=== PATIENT | male | born 1985 | race American Indian/Alaskan Native ===

== ENCOUNTER 2017-06-16 11:44 | Emergency (ER) | payer MEDICAID, OTHER ==
[2017-06-16] MEDS ORDERED: Iopamidol 612 MG/ML 75 ML Bottle IVPUSH ONE (12:37)
[2017-06-16] MEDS ORDERED: Dexamethasone 4 MG/ML SDV IVPUSH ONE (12:37)
[2017-06-16] MEDS: Sodium Chloride 0.9% 10 ML Syringe FLUSH PRN ×2 (12:38→12:47)
[2017-06-16 13:05] LABS: CHLORIDE,CL 104 mmol/L (101-111); SODIUM,NA 137 mmol/L (135-145)
--- NOTE | 2017-06-16 14:14 | EDM.PDOC ---
Scribed by Kait Man 06/16/17 1414 for Rolly Carrillo MD ED HPI GENERAL MEDICAL PROBLEM - General Chief Complaint: ENT Problem Stated Complaint: [id number] NECK SWOLLEN Time Seen by Provider: 06/16/17 11:50 Source of Information: Reports: Patient, RN, RN Notes Reviewed History Limitations: Reports: No Limitations - History of Present Illness INITIAL COMMENTS - FREE TEXT/NARRATIVE: Patient arrives from home by POV with complaint of onset of swelling and tenderness under right jaw/right upper neck last night. Patient woke this morning to find significantly increased swelling. Denies airway swelling or difficulty breathing, fever, chills, sore throat or dental pain/swelling or abscessed tooth. Denies neck stiffness or reduced range of motion. Onset Date: 06/15/17 Location: Reports: Other (right jaw) Quality: Reports: Ache Severity: Severe Improves with: Reports: None Worsens with: Reports: None Associated Symptoms: Reports: No Other Symptoms - Related Data Allergies Allergy/AdvReac Type Severity Reaction Status Date / Time No Known Allergies Allergy Verified 06/16/17 12:07 Home Meds: Home Meds . [No Known Home Meds] 03/30/14 [History] Past Medical History Cardiovascular History: Reports: None Respiratory History: Reports: None Gastrointestinal History: Reports: None Genitourinary History: Reports: None Musculoskeletal History: Reports: None Neurological History: Reports: Concussion Psychiatric History: Reports: None Endocrine/Metabolic History: Reports: None Hematologic History: Reports: None Immunologic History: Reports: None Oncologic (Cancer) History: Reports: None Dermatologic History: Reports: None - Infectious Disease History Infectious Disease History: Reports: Chicken Pox - Past Surgical History Head Surgeries/Procedures: Reports: None HEENT Surgical History: Reports: Other (See Below) Other HEENT Surgeries/Procedures: mouth surgery, jaw broke Social & Family History - Tobacco Use Smoking Status *Q: Never Smoker Second Hand Smoke Exposure: No - Caffeine Use Caffeine Use: Reports: Soda - Alcohol Use Days Per Week of Alcohol Use: 1 - Recreational Drug Use Recreational Drug Use: Yes Drug Use in Last 12 Months: Yes Recreational Drug Type: Reports: Marijuana/Hashish Recreational Drug Use Frequency: Daily - Living Situation & Occupation Living situation: Reports: with Family Occupation: Employed ED ROS ENT - Review of Systems Review Of Systems: ROS reveals no pertinent complaints other than HPI. ED EXAM, ENT - Physical Exam Exam: See Below Exam Limited By: No Limitations General Appearance: Alert, WD/WN, No Apparent Distress, Obese Eye Exam: Bilateral Eye: Normal Inspection Ears: Normal External Exam, Normal Canal, Hearing Grossly Normal, Normal TMs Nose: Normal Inspection, Normal Mucousa, No Blood Mouth/Throat: Normal Gums, Normal Lips, Normal Oropharynx, Normal Teeth, Other ( No dental abscess or gum swelling. No pharyngeal erythema. Mild tonsillar hypertrophy.). No: Dental Abcess, Dental Pain, Dental Tenderness, Drooling, Gum Swelling, Lip Swelling, Lip Ulcers, Oral Ulcers, Peritonsillar Mass, Pharyngeal Erythema, Throat Swelling, Tongue Swelling, Tonsillar Erythema, Tonsillar Exudates, Tonsillar Swelling, Uvular Deviation, Uvular Edema Head: Atraumatic, Normocephalic Neck: Full Range of Motion, Lymphadenopathy (R), Other (No nuchal rigidity.Large firm tender mass at right upper anteriorneck/submandibular region.). No: Lymphadenopathy (L) Respiratory/Chest: No Respiratory Distress, Lungs Clear, Normal Breath Sounds, No Accessory Muscle Use, Chest Non-Tender Cardiovascular: Normal Peripheral Pulses, Regular Rate, Rhythm, No Edema, No Gallop, No JVD, No Murmur, No Rub (Male) Exam: Deferred Rectal (Males) Exam: Deferred Neurological: Alert, Oriented, CN II-XII Intact, Normal Cognition, Normal Gait, Normal Reflexes, No Motor/Sensory Deficits Psychiatric: Normal Affect, Normal Mood Skin: Warm, Dry, Intact, Normal Color, No Rash Course - Vital Signs Last Recorded V/S: Last Vital Signs Temp 36.6 C 06/16/17 12:04 Pulse 86 06/16/17 12:04 Resp 16 06/16/17 12:04 BP 131/86 06/16/17 12:04 Pulse Ox 99 06/16/17 12:04 - Orders/Labs/Meds Orders: Active Orders 24 hr Category Date Time Status Peripheral IV Care [RC] . DIRECTED Care 06/16/17 12:36 Active CULTURE STREP A CONFIRMATION [RM] Stat Lab 06/16/17 12:27 Results STREP SCRN A RAPID W CULT CONF [RM] Stat Lab 06/16/17 12:27 Results Sodium Chloride 0.9% [Saline Flush] Med 06/16/17 12:36 Active 10 ml FLUSH ASDIRECTED PRN Peripheral IV Insertion Adult [OM.PC] Stat Oth 06/16/17 12:36 Ordered Medication Orders Sodium Chloride (Saline Flush) 10 ml FLUSH ASDIRECTED PRN PRN Reason: Keep Vein Open Last Admin: 06/16/17 12:47 Dose: 10 ml Admin: 06/16/17 12:38 Dose: 10 ml Labs: Laboratory Tests 06/16/17 06/16/17 06/16/17 Range/Units 12:43 12:43 12:43 WBC 9.2 (5.0-10.0) 10^3/uL RBC 5.28 (4.6-6.2) 10^6/uL Hgb 15.6 (14.0-18.0) g/dL Hct 47.0 (40.0-54.0) % MCV 89.0 (80-100) fL MCH 29.5 (27.0-34.0) pg MCHC 33.2 (33.0-35.0) g/dL Plt Count 247 (150-450) 10^3/uL Neut % (Auto) 54.6 (42.2-75.2) % Lymph % (Auto) 30.0 (20.5-50.1) % [place] % (Auto) 12.8 H (2-8) % Eos % (Auto) 2.3 (1.0-3.0) % Baso % (Auto) 0.3 (0.0-1.0) % Sodium 137 (135-145) mmol/L Potassium 4.0 (3.6-5.0) mmol/L Chloride 104 (101-111) mmol/L Carbon Dioxide 26.0 (21.0-31.0) mmol/L Anion Gap 11.0 BUN 12 (7-18) mg/dL Creatinine 0.9 (0.6-1.3) mg/dL Est Cr Clr Drug Dosing 115.92 mL/min Estimated GFR (MDRD) > 60 Glucose 104 (74-105) mg/dL Calcium 8.7 (8.4-10.2) mg/dl C-Reactive Protein 0.7 (0.0-1.3) mg/dL Rapid strep: Negative. Meds: Medications Generic Name Dose Route Start Last Admin Trade Name Freq PRN Reason Stop Dose Admin Sodium Chloride 10 ml 06/16/17 12:36 06/16/17 12:47 Saline Flush FLUSH 10 ml ASDIRECTED PRN Administration Keep Vein Open Discontinued Medications Generic Name Dose Route Start Last Admin Trade Name Simon PRN Reason Stop Dose Admin Dexamethasone 20 mg 06/16/17 12:37 06/16/17 12:46 Dexamethasone IVPUSH 06/16/17 12:38 20 mg ONETIME ONE Administration Iopamidol 75 ml 06/16/17 12:37 06/16/17 13:26 Isovue-300 (61%) IVPUSH 06/16/17 12:38 75 ml ONETIME ONE Administration - Radiology Interpretation Free Text/Narrative:: CT soft tissue neck with IV contrast: Soft tissue swelling and edema with inflammatory changes of the right submandibular space including the submandibular gland as described above. No soft tissue calcifications are demonstrate.No focal fluid collection to suggest abscss.There is evidence of associated reactive cervical lymphadenopathy. See rad report. Departure - Departure Time of Disposition: 14:11 Disposition: Home, Self-Care 01 Condition: Good Clinical Impression: Submandibular gland inflammation, Submandibular duct obstruction - Discharge Information Instructions: Salivary Gland Infection, Salivary Stone Forms: ED Department Discharge Additional Instructions: RX: Clindamycin 300mg. RX: Decadron 4mg. Gently massage the inflamed area. Use lemondrops or sour candy to increase saliva production. Follow up in clinic in 2-3 days for recheck. - My Orders Last 24 Hours: My Active Orders 06/16/17 12:27 CULTURE STREP A CONFIRMATION [RM] Stat STREP SCRN A RAPID W CULT CONF [RM] Stat 06/16/17 12:36 Peripheral IV Care [RC] . DIRECTED Sodium Chloride 0.9% [Saline Flush] 10 ml FLUSH ASDIRECTED PRN Peripheral IV Insertion Adult [OM.PC] Stat - Assessment/Plan Last 24 Hours: My Active Orders 06/16/17 12:27 CULTURE STREP A CONFIRMATION [RM] Stat STREP SCRN A RAPID W CULT CONF [RM] Stat 06/16/17 12:36 Peripheral IV Care [RC] . DIRECTED Sodium Chloride 0.9% [Saline Flush] 10 ml FLUSH ASDIRECTED PRN Peripheral IV Insertion Adult [OM.PC] Stat I have read and agree with the documentation that has been completed regarding this visit. By signing this record, I attest that the documentation was completed in my physical presence and is an accurate record of the encounter.
== END 2017-06-16 14:24 | disposition home or self-care (01) ==
LOC: DL.ED 11:44
DX: K11.20 Sialoadenitis, unspecified (principal); Z98.890 Other specified postprocedural states
CPT/HCPCS: 36415; 70491; 80048; 85025; 86140; 87081; 87430; 96374; 99284; J1100; J7050; Q9967

== ENCOUNTER 2019-02-02 05:57 | Day surgery (SDC) | payer OTHER ==
[~2019-02-02 05:57] MED LIST: Dextrose 5%-0.45% NaCl 1,000 ML IV SCH; Midazolam 1 MG/ML 2 ML SDV ONE; Sodium Chloride 0.9% 10 ML Syringe FLUSH PRN; fentaNYL 100 MCG/2 ML SDV ONE
[2019-02-02] MEDS ORDERED: Midazolam 1 MG/ML 2 ML SDV ONE (06:13)
[2019-02-02] MEDS ORDERED: fentaNYL 100 MCG/2 ML SDV ONE (06:13)
[2019-02-02] MEDS ORDERED: fentaNYL 100 MCG/2 ML SDV IV ONE ×2 (06:53→06:54)
[2019-02-02] MEDS ORDERED: Midazolam 1 MG/ML 2 ML SDV IV ONE ×2 (06:54→06:55)
--- NOTE | 2019-02-02 12:08 | OR ---
DATE: 02/02/2019 PROCEDURE: Esophagogastroduodenoscopy and multiple pinch biopsies. INSTRUMENT USED: [id number]-HQ190 Olympus video panendoscope. PREMEDICATIONS: No oral or topical anesthesia used. Fentanyl 100 mcg intravenous, Versed 2 mg intravenous. The procedure was done under pulse oximetry, BP recording, and library monitor. INDICATION: The patient with long-standing heartburn, unexplained and not responsive to medical measures. Esophagogastroduodenoscopy is performed for detection of any active erosive lesions, Rodriguez esophagus and/or malignancy also under consideration, H. pylori status to be determined, endoscopic hemostasis therapy if needed. PROCEDURE IN DETAIL: The scope was passed with ease. Adequate visualization of the esophagus was made from proximal to distal areas. No upper esophageal lesions identified. No distal esophageal stricture. No uphill or downhill esophageal varices. No Carolyn-Card tear. Grade A erosive changes were noted by [place] criteria. No esophageal polyp or tumor mass identified. Z-line was seen at around 40 cm distal to the oral verge, configuration consistent with grade 1 by ZAP classification. No proximal gastric varices noted. Gastric fundus examination by retroflexion showed no polypoid lesions. No gastric ulcer, malignant mass, or vascular ectasia identified. Duodenal bulb showed no ulcer. Visualized of second part of the duodenum was unremarkable. Multiple pinch biopsies were taken from the gastric antrum and proximal body, and sent for PyloriTek test for H. pylori, and if negative in an hour, the tissue is to be sent for histopathology. No bleeding was noted from any of the visualized areas at the completion of examination. Photographs were taken of the duodenal bulb, gastric antrum, fundus, and distal esophagus. There was some amount of solid food in the stomach limiting visualization of some of the areas of the proximal stomach. IMPRESSION: 1. Grade A gastroesophageal reflux disease. 2. Gastric food retention. The patient tolerated the procedure well. [facility] /[id number]
--- NOTE | 2019-02-02 12:27 | LETTER ---
02/02/2019 RE: MICHELLE YUN DEX : 1985 Yesenia Gamez NP [facility] [address] [place] [address] Dear Mr. Gamez: Mr. Michelle Yun had esophagogastroduodenoscopy done this morning and he tolerated the procedure well. I herewith send a copy of the endoscopy note and photographs for your review. Thank you. Sincerely, [facility] /[id number]
== END 2019-02-02 09:06 | disposition home or self-care (01) ==
LOC: DL.ENDO 05:57
PROVIDERS: ATTEND Internal Medicine Gastroenterology
DX: K21.9 Gastro-esophageal reflux disease without esophagitis (principal); T18.2XXA Foreign body in stomach, initial encounter; K31.89 Other diseases of stomach and duodenum; G47.33 Obstructive sleep apnea (adult) (pediatric); E66.09 Other obesity due to excess calories; Z88.0 Allergy status to penicillin; Z68.38 Body mass index [BMI] 38.0-38.9, adult
CPT/HCPCS: 43239; J7042; J2250; J3010

== ENCOUNTER 2019-02-03 07:24 | Day surgery (SDC) | payer OTHER ==
[~2019-02-03 07:24] MED LIST changes: -Dextrose 5%-0.45% NaCl 1,000 ML IV SCH; -Sodium Chloride 0.9% 10 ML Syringe FLUSH PRN
[2019-02-03] MEDS ORDERED: fentaNYL 100 MCG/2 ML SDV IV ONE ×5 (07:25→08:09)
[2019-02-03] MEDS ORDERED: Midazolam 1 MG/ML 2 ML SDV IV ONE ×7 (07:25→08:06)
[2019-02-03] MEDS ORDERED: Dextrose 5%-0.45% NaCl 1,000 ML IV SCH (08:00)
--- NOTE | 2019-02-03 14:28 | OR ---
DATE: 02/03/2019 PROCEDURE: Total colonoscopy. INSTRUMENT USED: [id number]-CM002M Olympus video colonoscope. PREMEDICATIONS: Fentanyl 125 mcg intravenous, Versed 4 mg intravenous, nasal O2 cannula. The procedure was done under pulse oximetry, BP recording, and quality assurance monitor body. INDICATION: The patient with history of rectal bleeding and Hemoccult-positive stools. Colonoscopic examination is done for detection of any polypoid lesions and removal, endoscopic hemostasis therapy if needed. DESCRIPTION OF PROCEDURE: Initial rectal exam was unremarkable. Rigid anoscopy showed small internal hemorrhoids without bleeding from them. The colonoscope was passed with ease. Few scattered diverticula were noted in the distal left colon. The scope was passed with ease up to the ileocecal area. Photographs were taken of the normal-appearing cecum, identified by landmarks of appendiceal orifice and double-bulged ileocecal folds. No bleeding was noted from any of the visualized areas at the commencement of the examination. There was some amount of fecal material that had to be aspirated clear. Bowel preparation, [place] scale 2 in all the regions. No stricture. No vascular ectasia. No large isolated ulcerations seen. No evidence of diffuse inflammatory bowel disease in the form of friability, contact bleeding, or ulcerations. No polyp or tumor mass identified. Probing the proximal sides of folds and flexures using adequate distention and clearing up the stool material, withdrawal of the scope was made. Cecum to rectum time over 6 minutes. No bleeding was noted from any of the visualized areas at the completion of examination. IMPRESSION: 1. Internal hemorrhoids. 2. Diverticulosis. The patient tolerated the procedure well. [facility] /[id number]
--- NOTE | 2019-02-03 14:36 | LETTER ---
02/03/2019 RE: MICHELLE YUN : [address] [facility] [address] [place] [address] Dear Ms. Ramos: Mr. Michelle Yun had a colonoscopic examination done this morning and he tolerated the procedure well. I herewith send a copy of the endoscopy note and photographs for your review. Thank you. Sincerely, [facility] /[id number]
== END 2019-02-03 10:38 | disposition home or self-care (01) ==
LOC: DL.ENDO 07:24
PROVIDERS: ATTEND Internal Medicine Gastroenterology
DX: K57.31 Diverticulosis of large intestine without perforation or abscess with bleeding (principal); K64.8 Other hemorrhoids; K21.9 Gastro-esophageal reflux disease without esophagitis; E66.09 Other obesity due to excess calories; Z88.0 Allergy status to penicillin
CPT/HCPCS: 45378; 87077; J7042; G0121; J2250; J3010

== ENCOUNTER 2024-05-18 10:32 | Emergency (ER) | payer BC | END 2024-05-18 11:28 | disposition home or self-care (01) | LOC: DL.ED 10:32 | DX: G51.0 Bell's palsy (principal); E66.9 Obesity, unspecified; Z68.43 Body mass index [BMI] 50.0-59.9, adult; Z88.0 Allergy status to penicillin; Z79.82 Long term (current) use of aspirin | CPT/HCPCS: 99283; 99284 ==

== ENCOUNTER 2024-05-19 08:30 | Emergency (ER) | payer BC ==
[2024-05-19] MEDS ORDERED: Sodium Chloride 0.9% 10 ML Syringe FLUSH PRN (08:48)
[2024-05-19 09:24] LABS: BASOPHILS PERCENT AUTO 0.4 % (0.0-1.0); HEMATOCRIT 47.3 % (40.0-54.0); HEMOGLOBIN 15.8 g/dL (14.0-18.0); LYMPHOCYTES PERCENT AUTO 30.5 % (20.5-50.1); MEAN CORPUSCULAR HEMOGLOBIN 29.6 pg (27.0-34.0); MEAN CORPUSCULAR HGB CONC 33.4 g/dL (33.0-35.0); MEAN CORPUSCULAR VOLUME 88.6 fL (80-100); MONOCYTES PERCENT AUTO 8.6 % (2-8); NEUTROPHILS PERCENT AUTO 58.5 % (42.2-75.2); PLATELET COUNT,PLT 268 10^3/uL (150-450); RED BLOOD CELL COUNT 5.34 10^6/uL (4.6-6.2); WHITE BLOOD CELL COUNT,WBC 10.7 10^3/uL (5.0-10.0)
[2024-05-19 10:04] LABS: A/G RATIO 0.9; ALBUMIN 3.5 g/dL (3.4-5.0); ANION GAP 7.1 mEq/L (7-13); BILIRUBIN TOTAL 0.4 mg/dL (0.2-1.0); CALCIUM 9.1 mg/dL (8.5-10.1); CREATININE 1.25 mg/dL (0.70-1.30); EST CRCL DRUG DOSING (CG) 76.76 mL/min; POTASSIUM,K 4.1 mmol/L (3.5-5.1); PROTEIN TOTAL,TP 7.6 g/dL (6.4-8.2)
== END 2024-05-19 10:53 | disposition home or self-care (01) ==
LOC: DL.ED 08:30
DX: G51.0 Bell's palsy (principal); E66.9 Obesity, unspecified; Z68.42 Body mass index [BMI] 45.0-49.9, adult; Z88.0 Allergy status to penicillin; Z79.82 Long term (current) use of aspirin; Z79.899 Other long term (current) drug therapy
CPT/HCPCS: 36415; 70450; 80053; 82607; 85025; 99283; 99284

== ENCOUNTER 2024-11-11 15:54 | Emergency (ER) | payer BC, OTHER ==
[2024-11-11 16:40] LABS: BASOPHILS PERCENT AUTO 0.4 % (0.0-1.0); EOSINOPHILS PERCENT AUTO 2.5 % (1.0-3.0); LYMPHOCYTES PERCENT AUTO 19.6 % (20.5-50.1); MONOCYTES PERCENT AUTO 8.6 % (2-8); NEUTROPHILS PERCENT AUTO 68.9 % (42.2-75.2); PLATELET COUNT,PLT 271 10^3/uL (150-450); RED BLOOD CELL COUNT 5.33 10^6/uL (4.6-6.2); WHITE BLOOD CELL COUNT,WBC 10.2 10^3/uL (5.0-10.0)
[2024-11-11 16:49] LABS: CARBON DIOXIDE,CO2 28.0 mmol/L (21-32); CHLORIDE,CL 109.0 mmol/L (98-107); GLUCOSE RANDOM 106.0 mg/dL (70-99); POTASSIUM,K 4.2 mmol/L (3.5-5.1); SODIUM,NA 143.0 mmol/L (136-145)
[2024-11-11 16:50] LABS: ALANINE AMINOTRANSFERASE,ALT 38.0 U/L (16-63); ASPARTATE AMNIOTRANSFERASE,AST 29.0 U/L (15-37); BILIRUBIN TOTAL 0.6 mg/dL (0.2-1.0); BLOOD UREA NITROGEN,BUN 19.0 mg/dL (7-18); CREATININE 1.64 mg/dL (0.70-1.30); EST CRCL DRUG DOSING (CG) 57.93 mL/min; PROTEIN TOTAL,TP 7.0 g/dL (6.4-8.2)
[2024-11-11] MEDS: Ketorolac 30 MG/ML SDV IVPUSH ONE (16:51)
[2024-11-11 16:55] LABS: A/G RATIO 0.89; ESTIMATED GFR 54.0 mL/min (>=60)
[2024-11-11 17:33] LABS: APPEARANCE,URINE CLEAR (CLEAR); GLUCOSE,URINE NEGATIVE (NEGATIVE); OCCULT BLOOD,URINE TRACE-INTACT (NEGATIVE)
[2024-11-11 17:47] LABS: EPITHELIAL CELLS,URINE RARE /HPF (NOT SEEN)
[2024-11-11] MEDS: Take Home: Acetaminophen/HYDROcodone 325-5 MG, 5 Tab Pack PO ONE (18:49)
[2024-11-11] MEDS: Take Home: Ondansetron 4 MG Tab.DIS, 5 Tab Pack PO ONE (18:49)
== END 2024-11-11 19:01 | disposition home or self-care (01) ==
LOC: DL.ED 15:54
DX: N13.2 Hydronephrosis with renal and ureteral calculous obstruction (principal); E66.9 Obesity, unspecified; Z88.0 Allergy status to penicillin; Z79.82 Long term (current) use of aspirin; Z86.16 Personal history of COVID-19
CPT/HCPCS: 36415; 74176; 80053; 81001; 85025; 96374; 99284; 99284-25; A9270-GY; J1885; J7030; Q0162

== ENCOUNTER 2025-02-28 23:25 | Emergency (ER) | payer OTHER ==
[2025-03-01 00:03] LABS: PLATELET COUNT,PLT 255 10^3/uL (150-450); RED BLOOD CELL COUNT 5.12 10^6/uL (4.6-6.2); WHITE BLOOD CELL COUNT,WBC 9.9 10^3/uL (5.0-10.0)
[2025-03-01] MEDS: Ketorolac 30 MG/ML SDV IVPUSH ONE (00:05)
[2025-03-01 00:09] LABS: BASOPHILS PERCENT AUTO 0.4 % (0.0-1.0); EOSINOPHILS PERCENT AUTO 3.2 % (1.0-3.0); LYMPHOCYTES PERCENT AUTO 30.8 % (20.5-50.1); MONOCYTES PERCENT AUTO 12.0 % (2-8); NEUTROPHILS PERCENT AUTO 53.6 % (42.2-75.2)
[2025-03-01 00:13] LABS: A/G RATIO 0.9; ALANINE AMINOTRANSFERASE,ALT 26.0 U/L (16-63); ASPARTATE AMNIOTRANSFERASE,AST 12.0 U/L (15-37); BILIRUBIN TOTAL 0.2 mg/dL (0.2-1.0); BLOOD UREA NITROGEN,BUN 11.0 mg/dL (7-18); CARBON DIOXIDE,CO2 29.0 mmol/L (21-32); CHLORIDE,CL 109.0 mmol/L (98-107); CREATININE 1.13 mg/dL (0.70-1.30); EST CRCL DRUG DOSING (CG) 84.07 mL/min; GLUCOSE RANDOM 152.0 mg/dL (70-99); POTASSIUM,K 3.9 mmol/L (3.5-5.1); PROTEIN TOTAL,TP 7.3 g/dL (6.4-8.2); SODIUM,NA 144.0 mmol/L (136-145)
[2025-03-01 00:14] LABS: ESTIMATED GFR 84.0 mL/min (>=60)
[2025-03-01 00:16] LABS: LACTIC ACID 1.3 mmol/L (0.4-2.0)
[2025-03-01 00:27] LABS: EOSINOPHILS PERCENT MAN 2 % (1-3); LYMPHOCYTES PERCENT MAN 27 % (20-50); MONOCYTES PERCENT MAN 12 % (2-8); SEG NEUTROPHILS PERCENT MAN 59 % (42-75)
[2025-03-01 01:28] LABS: APPEARANCE,URINE CLEAR (CLEAR); GLUCOSE,URINE NEGATIVE (NEGATIVE); OCCULT BLOOD,URINE TRACE-INTACT (NEGATIVE)
[2025-03-01 01:39] LABS: SQUAMOUS EPITHELIAL CELLS,UR RARE /HPF (NOT SEEN)
== END 2025-03-01 02:06 | disposition home or self-care (01) ==
LOC: DL.ED 23:25
DX: N20.0 Calculus of kidney (principal); E78.00 Pure hypercholesterolemia, unspecified; K21.9 Gastro-esophageal reflux disease without esophagitis; Z88.0 Allergy status to penicillin; Z79.82 Long term (current) use of aspirin; Z79.899 Other long term (current) drug therapy; Z86.16 Personal history of COVID-19
CPT/HCPCS: 36415; 80053; 81001; 83605; 83735; 85025; 96374; 99284; A9270; J1885; J7030

== ENCOUNTER 2025-03-01 06:31 | Emergency (ER) | payer OTHER ==
[2025-03-01] MEDS: Ketorolac 30 MG/ML SDV IVPUSH ONE (08:13)
== END 2025-03-01 09:17 | disposition home or self-care (01) ==
LOC: DL.ED 06:31
DX: N20.0 Calculus of kidney (principal); E78.00 Pure hypercholesterolemia, unspecified; K21.9 Gastro-esophageal reflux disease without esophagitis; Z86.16 Personal history of COVID-19; Z88.0 Allergy status to penicillin; Z79.82 Long term (current) use of aspirin; Z79.899 Other long term (current) drug therapy
CPT/HCPCS: 96374; 96375; 96376; 99283; 99284; J1885; J2270; J7030; J1171